=== PATIENT | female | born 1965 | race Hispanic/Latino ===

== ENCOUNTER 2020-01-02 07:15 | Emergency (ER) | payer OTHER ==
[2020-01-02 07:32] LABS: BASOPHILS % (AUTO) 0.7 % (0.0-5.0); EOSINOPHILS % (AUTO) 1.1 % (0.0-8.0); HEMATOCRIT 44.9 % (36-48); LYMPHOCYTES % (AUTO) 18.6 % (21.0-51.0); MEAN CORPUSCULAR VOLUME 91.1 fL (79-99); MONOCYTES % (AUTO) 4.5 % (3.0-13.0); NEUTROPHILS % (AUTO) 74.9 % (40.0-77.0); PLATELET COUNT (AUTO) 196 K/uL (130-400); RED BLOOD CELL COUNT(AUTO) 4.93 MIL/uL (4.00-5.50); RED CELL DISTRIBUTION WIDTH 13.4 % (11.0-15.5); WHITE BLOOD COUNT (AUTO) 8.8 K/uL (4.8-10.8)
[2020-01-02] MEDS ORDERED: KETOROLAC TROMETHAMINE 30MG/ML ONE (07:44)
[2020-01-02] MEDS ORDERED: SODIUM CHLORIDE 0.9% 1000ML 1,000 ML IV ONE (07:44)
[2020-01-02 07:47] LABS: ALBUMIN 4.2 g/dL (3.5-5.0); BILIRUBIN,TOTAL 0.5 mg/dL (0.2-1.0); CREATININE 0.9 mg/dL (0.5-1.5); POTASSIUM 3.8 mmol/L (3.5-5.1); TOTAL PROTEIN, SERUM 8.4 g/dL (6.0-8.3)
[2020-01-02] MEDS ORDERED: ONDANSETRON HCL 4 MG/2 ML VIAL ONE (09:02)
[2020-01-02] MEDS ORDERED: MORPHINE SULFATE 4 MG/1ML SYG ONE ×2 (09:02→10:57)
[2020-01-02 09:04] LABS: APPEARANCE,URINE Cloudy (CLEAR); BILIRUBIN,URINE Negative (NEGATIVE); COLOR,URINE Yellow (YELLOW); GLUCOSE, URINE (UA) Negative (NEGATIVE); KETONES,URINE 40 mg/dL (NEGATIVE); LEUKOCYTE ESTERASE ,URINE Small (NEGATIVE); NITRATE,URINE Negative (NEGATIVE); OCCULT BLOOD,URINE Small (NEGATIVE); PROTEIN,URINE Negative (NEGATIVE); UROBILINOGEN,URINE 0.2 mg/dL (0.2-1.0)
[2020-01-02 09:29] LABS: BACTERIA,URINE Few /HPF (None Seen); CALCIUM OXALATE CRYSTALS,UR Moderate /LPF (None Seen)
[2020-01-02] MEDS ORDERED: TAMSULOSIN HCL 0.4 MG CAP.ER.24H ONE (10:57)
== END 2020-01-02 12:30 | disposition home or self-care (01) ==
LOC: EDH 07:15
DX: N13.2 Hydronephrosis with renal and ureteral calculous obstruction (principal); E83.52 Hypercalcemia; R94.5 Abnormal results of liver function studies
CPT/HCPCS: 36415; 74176; 80053; 81001; 83690; 85025; 96374; 96375; 96376; 99284; J1885; J2270 ×2; J2405; J7030

== ENCOUNTER 2020-01-10 10:52 | Emergency (ER) | payer OTHER ==
[2020-01-10 11:33] LABS: BASOPHILS % (AUTO) 0.8 % (0.0-5.0); HEMATOCRIT 42.1 % (36-48); LYMPHOCYTES % (AUTO) 29.8 % (21.0-51.0); MEAN CORPUSCULAR HEMOGLOBIN 29.7 pg (27.0-33.0); MONOCYTES % (AUTO) 8.3 % (3.0-13.0); NEUTROPHILS % (AUTO) 59.9 % (40.0-77.0); PLATELET COUNT (AUTO) 198 K/uL (130-400); RED BLOOD CELL COUNT(AUTO) 4.68 MIL/uL (4.00-5.50); RED CELL DISTRIBUTION WIDTH 13.3 % (11.0-15.5); WHITE BLOOD COUNT (AUTO) 6.1 K/uL (4.8-10.8)
[2020-01-10 12:02] LABS: ALBUMIN 3.9 g/dL (3.5-5.0); BILIRUBIN,TOTAL 0.4 mg/dL (0.2-1.0); CREATININE 1.1 mg/dL (0.5-1.5); MAGNESIUM 1.8 mg/dL (1.80-2.40); PHOSPHORUS 2.3 mg/dL (2.5-4.9); POTASSIUM 4.2 mmol/L (3.5-5.1); TOTAL PROTEIN, SERUM 8.1 g/dL (6.0-8.3)
== END 2020-01-10 14:03 | disposition home or self-care (01) ==
LOC: EDH 10:52
DX: E83.52 Hypercalcemia (principal); Z90.710 Acquired absence of both cervix and uterus
CPT/HCPCS: 36415; 80053; 83735; 83970; 84100; 85025

== ENCOUNTER 2021-03-01 08:52 | Observation (INO) | payer OTHER ==
[~2021-03-01] VITALS: Ht 154.9 cm; Wt 81.7 kg
[2021-03-01] MEDS ORDERED: SODIUM CHLORIDE 0.9% 1000ML 1,000 ML IV ONE ×2 (09:59→14:59)
[2021-03-01 10:04] LABS: BASOPHILS % (AUTO) 0.5 % (0.0-5.0); EOSINOPHILS % (AUTO) 1.6 % (0.0-8.0); LYMPHOCYTES % (AUTO) 35.8 % (21.0-51.0); MEAN CORPUSCULAR HEMOGLOBIN 28.8 pg (27.0-33.0); MEAN CORPUSCULAR HGB CONC 31.5 g/dL (32.0-36.0); MEAN CORPUSCULAR VOLUME 91.6 fL (79-99); MONOCYTES % (AUTO) 6.3 % (3.0-13.0); NEUTROPHILS % (AUTO) 55.6 % (40.0-77.0); PLATELET COUNT (AUTO) 178 K/uL (130-400); RED BLOOD CELL COUNT(AUTO) 3.71 MIL/uL (4.00-5.50); RED CELL DISTRIBUTION WIDTH 14.1 % (11.0-15.5); WHITE BLOOD COUNT (AUTO) 5.6 K/uL (4.8-10.8)
[2021-03-01 10:16] LABS: CREATININE 0.7 mg/dL (0.5-1.5); POTASSIUM 4.1 mmol/L (3.5-5.1)
[2021-03-01 10:21] LABS: ALBUMIN 3.5 g/dL (3.5-5.0); BILIRUBIN,TOTAL 0.3 mg/dL (0.2-1.0); TOTAL PROTEIN, SERUM 7.1 g/dL (6.0-8.3)
[2021-03-01 10:36] LABS: APPEARANCE,URINE Cloudy (CLEAR); BILIRUBIN,URINE Negative (NEGATIVE); COLOR,URINE Yellow (YELLOW); GLUCOSE, URINE (UA) Negative (NEGATIVE); KETONES,URINE Negative (NEGATIVE); LEUKOCYTE ESTERASE ,URINE Small (NEGATIVE); NITRATE,URINE Negative (NEGATIVE); OCCULT BLOOD,URINE Negative (NEGATIVE); PROTEIN,URINE Negative (NEGATIVE)
[2021-03-01 10:51] LABS: BACTERIA,URINE Few /HPF (None Seen); MUCUS,URINE Few LPF (None Seen); RBC,URINE None Seen /HPF (0-1)
[2021-03-01] MEDS ORDERED: PANTOPRAZOLE 40 MG/VIAL ONE (13:51)
[2021-03-01] MEDS ORDERED: ACETAMINOPHEN 325 MG TAB PO PRN ×2 (14:00)
[2021-03-01] MEDS ORDERED: ONDANSETRON HCL 4 MG/2 ML VIAL IV PRN (14:00)
[2021-03-01] MEDS ORDERED: LACTULOSE 20 GM/30 ML UDCUP PO PRN (14:00)
[2021-03-01] MEDS ORDERED: SODIUM CHLORIDE 0.9% 1000ML 1,000 ML IV SCH (14:00)
[2021-03-01] MEDS ORDERED: METRONIDAZOLE 500MG/100ML BAG 100 ML ONE (14:57)
[2021-03-01] MEDS ORDERED: CLARITHROMYCIN 500 MG TABLET ONE (14:58)
[2021-03-01 15:41] LABS: HEMATOCRIT 31.8 % (36-48)
[2021-03-01] MEDS ORDERED: PANTOPRAZOLE SODIUM 80 MG in NS 100ML IVP SCH (17:30)
[2021-03-01 22:26] LABS: HEMATOCRIT 30.7 % (36-48)
[2021-03-01 22:30] VITALS: BP 143/49
[2021-03-02] VITALS (18 sets, daily range): BP systolic 99–147; BP diastolic 45–76
[2021-03-02] MEDS: METRONIDAZOLE 500MG/100ML BAG 100 ML IVPB SCH ×3 (00:51→14:31)
[2021-03-02] MEDS ORDERED: CLARITHROMYCIN 500 MG TABLET ONE (00:57)
[2021-03-02] MEDS: CLARITHROMYCIN 500 MG TABLET PO SCH ×2 (01:11→13:36)
[2021-03-02] MEDS ORDERED: VIT D 3 (04:27)
[2021-03-02] MEDS ORDERED: MAGNESIUM (04:27)
[2021-03-02] MEDS ORDERED: VIT E (04:27)
[2021-03-02 06:01] LABS: BASOPHILS % (AUTO) 0.4 % (0.0-5.0); EOSINOPHILS % (AUTO) 2.1 % (0.0-8.0); HEMATOCRIT 29.7 % (36-48); LYMPHOCYTES % (AUTO) 39.5 % (21.0-51.0); MEAN CORPUSCULAR HEMOGLOBIN 30.5 pg (27.0-33.0); MEAN CORPUSCULAR VOLUME 92.5 fL (79-99); MONOCYTES % (AUTO) 7.3 % (3.0-13.0); NEUTROPHILS % (AUTO) 50.5 % (40.0-77.0); PLATELET COUNT (AUTO) 150 K/uL (130-400); RED BLOOD CELL COUNT(AUTO) 3.21 MIL/uL (4.00-5.50); RED CELL DISTRIBUTION WIDTH 14.3 % (11.0-15.5); WHITE BLOOD COUNT (AUTO) 5.2 K/uL (4.8-10.8)
[2021-03-02 06:21] LABS: CREATININE 0.7 mg/dL (0.5-1.5); POTASSIUM 3.7 mmol/L (3.5-5.1)
[2021-03-02] MEDS ORDERED: PANTOPRAZOLE 40 MG/VIAL IVP SCH (09:00)
[2021-03-02] MEDS ORDERED: FENTANYL CITRATE PF 50 MCG/1 ML 2ML VIAL ONE (11:08)
[2021-03-02] MEDS ORDERED: MIDAZOLAM HCL 1 MG/ML 2ML VIAL ONE (11:09)
[2021-03-02] MEDS ORDERED: METR500T PO (13:45)
[2021-03-02] MEDS ORDERED: OMEP40CA13 PO (13:45)
[2021-03-02] MEDS ORDERED: CLAR-44 PO (13:45)
[2021-03-03] MEDS ORDERED: PANTOPRAZOLE SODIUM 40 MG TABLET.DR PO SCH (09:00)
== END 2021-03-02 18:57 | disposition home or self-care (01) ==
LOC: EDH 08:52 → EDHIP 13:54 → WSH 21:05
PROVIDERS: ADMIT Internal Medicine; ATTEND Internal Medicine
DX: K92.1 Melena (principal); K29.00 Acute gastritis without bleeding; D62 Acute posthemorrhagic anemia; K44.9 Diaphragmatic hernia without obstruction or gangrene; K59.00 Constipation, unspecified; B96.81 Helicobacter pylori [H. pylori] as the cause of diseases classified elsewhere; Z90.710 Acquired absence of both cervix and uterus
CPT/HCPCS: 36415 ×2; 43239; 80048; 80053; 81001; 82270; 83690; 85014 ×2; 85018 ×2; 85025 ×2; 86677; 86850; 86900; 86901; 86922; 96361; 96365; 96366; 99284; A4606; A4620; C9113 ×2; G0378 ×27; J2250; J3010; J3490 ×4; J7030 ×2